=== PATIENT | female | born 1985 | race Caucasian/White ===

== ENCOUNTER → 2020-03-05 | Outpatient (CLI) | payer OTHER ==
[2020-03-07 16:08] LABS: CORONAVIRUS (COVID19) CSH-NRL Positive (Negative)
== END | disposition home or self-care (01) ==
LOC: LAB EV 14:55 → LAB SHORT 14:55
PROVIDERS: Physician Assistant
DX: U07.1 COVID-19 (principal)
CPT/HCPCS: U0003

== ENCOUNTER 2020-08-07 11:05 | Day surgery (SDC) | payer OTHER ==
[~2020-08-07] VITALS: Ht 154.9 cm; Wt 85.5 kg
--- NOTE | 2020-08-07 13:24 | NUR ---
08/07/20 1324 Heather Lopez ABDOMINAL AREA PREPPED WITH CLORAPREP BY [email or web address] ANIA AREA PREPPED WITH CHLORAHEXIDINE BY [email or web address] BUPIVACAINE 0.5% 30 MLS MIXED W/ 0.15 ML EPI BY RN PER ORDER TO MAKE BUPIVACAINE 0.5% 1:200,000 FOR INJECTION AT OPSITE BY DR. NINO
--- NOTE | 2020-08-07 14:48 | NUR ---
08/07/20 1448 Devi Crowder ASKED IF IT WAS OK FOR PT TO GO ON A TRIP IN 3 DAYS. RN SPOKE WITH DR. NINO. OK TO GO ON TRIP LONG SHE IS NOT DRIVING AND IS ABLE TO MAKE STOPS ON THE TRIP.
== END 2020-08-07 14:57 | disposition home or self-care (01) ==
LOC: ORSCSDS 11:05
PROVIDERS: Obstetrics & Gynecology
PROC: 0UT74ZZ Resection of Bilateral Fallopian Tubes, Percutaneous Endoscopic Approach (ICD-10-PCS; principal; 2020-08-07 12:30)
DX: Z30.2 Encounter for sterilization (principal); E66.9 Obesity, unspecified; Z68.35 Body mass index [BMI] 35.0-35.9, adult
CPT/HCPCS: 88302; J0171; J1100; J2250; J2405; J2704; J3010; J7120